=== PATIENT | male | born 1950 | race Hispanic/Latino ===

== ENCOUNTER 2018-10-31 12:01 | Observation (INO) | payer OTHER, MEDICARE ==
[~2018-10-31] VITALS: Ht 165.1 cm; Wt 78.0 kg
--- OUTSIDE RECORDS SUMMARY | 2018-10-31 12:03 | XMS REPORT ---
Author Author [facility] Address Unknown Phone Unavailable Care Team Providers Care Volunteer Patient Representative Name Role Phone Unavailable Unavailable Payers Payer Name Policy Type Policy Number Effective Date Expiration Date Problems This patient has no known problems. Allergies, Adverse Reactions, Alerts Allergy Name Allergy Type Status Severity Reaction(s) Onset Date Inactive Date Treating Clinician Comments No Known Allergies DA Active U 2018-02-26 00:00:00 Medications This patient has no known medications.
[2018-10-31] MEDS ORDERED: ASPIRIN 81 MG CHEW TAB ONE (12:31)
[2018-10-31] MEDS ORDERED: MORPHINE SULFATE INJ 4 MG/ML INJ 1ML ONE (12:31)
--- NOTE | 2018-10-31 12:46 | Diagnostic Imaging Report ---
EXAM: PA and lateral views of the chest. COMPARISON: None CLINICAL HISTORY: ^[id number] ^1231 FINDINGS: Lines/tubes: None. Lungs: The lungs are well inflated and clear. Pleura: There is no pleural effusion or pneumothorax. Heart and mediastinum: The cardiomediastinal silhouette is normal. Bones and soft tissues: No acute bony abnormalities. IMPRESSION: No acute cardiopulmonary abnormalities. Signed by: Dr. Allison Woo M.D. on 10/31/2018 12:43 PM
[2018-10-31] MEDS ORDERED: SODIUM CHLORIDE FLUSH 10 ML SYR INJ PRN (13:00)
[2018-10-31] MEDS ORDERED: ASPIRIN 81 MG CHEW TAB PO ONE ×2 (13:00)
[2018-10-31] MEDS ORDERED: MORPHINE SULFATE 5 MG/ML VIAL IV ONE (13:00)
[2018-10-31] MEDS ORDERED: NITROGLYCERIN 0.4 MG SUBL SL PRN (13:00)
[2018-10-31] MEDS ORDERED: MORPHINE SULFATE INJ 4 MG/ML INJ 1ML IV PRN (13:00)
[2018-10-31] MEDS ORDERED: ONDANSETRON HCL INJ 2MG/ML 2ML 2 MG/ML VIAL IV PRN (13:00)
[2018-10-31] MEDS ORDERED: SODIUM CHLORIDE 0.9% 1000ML 1,000 ML IV SCH (13:15)
[2018-10-31] MEDS ORDERED: SODIUM CHLORIDE 0.9% 1000ML 1,000 ML ONE (13:22)
--- NOTE | 2018-10-31 13:35 | NUR ---
Called [facility] to transport pt to [phone]
[2018-10-31] MEDS ORDERED: ASPIRIN EC81 MG PO (13:41)
[2018-10-31] MEDS ORDERED: METFORMIN HCL1000 MG (13:41)
[2018-10-31] MEDS ORDERED: LISINOPRIL10 MG PO (13:41)
[2018-10-31] MEDS ORDERED: GLIPIZIDE5 MG PO (13:41)
--- NOTE | 2018-10-31 13:53 | NUR ---
Report given to ELIAN Olivo
[2018-10-31] MEDS ORDERED: ACETAMINOPHEN 325 MG TAB PO PRN (15:30)
[2018-10-31] MEDS ORDERED: METOCLOPRAMIDE HCL 10 MG TAB PO ONE (15:30)
[2018-10-31 15:41] VITALS: BP 146/85
[2018-10-31 15:50] VITALS: BP 146/85
[2018-10-31] MEDS: SODIUM CHLORIDE 0.9% 1000ML 1,000 ML IV SCH (15:50)
[2018-10-31] MEDS ORDERED: CLOPIDOGREL BISULFATE 75 MG TAB PO ONE (16:00)
[2018-10-31] MEDS ORDERED: CHLORPROMAZINE HCL 25 MG TAB JT PRN (19:15)
--- NOTE | 2018-10-31 19:17 | Consultation ---
DATE OF CONSULTATION: 10/31/2018 Cardiac Consultation REASON FOR THE CONSULTATION: Hiccups and chest pain. HISTORY: A 68-year-old gentleman, diabetic, hypertensive, hypercholesterolemic. Relatively very active. He was working in the sun on Thursday and since then he was sick. He started having hiccups. The hiccups becoming continuous. It was so cumbersome and he is having chest pain with the hiccups. He is feeling unwell. The patient came to the emergency room. He also complained of chest pain and diaphoresis. Admitted for further management. Cardiac consultation obtained. Cardiac clark prior to this illness, the patient is relatively active with no angina. He does have easy fatigability and shortness of breath on exertion, which was noted since February "since the fall," he saw his physician may be it was small CVA and at that time he is not the way perfect he is, but he stays relatively active with some shortness of breath. Occasional chest tightness. No charli angina. No syncope or presyncope. REVIEW OF SYSTEMS: CARDIAC: As per above. PULMONARY: No cough. No hemoptysis. GI: No hematemesis. No melena. Hiccups acutely for the last 3 days. GENERAL: Fever and chills after working outside and dehydration couple few days back. HEENT: Unremarkable. : Decreased urine output. MUSCULOSKELETAL: Aches and pain. ENDOCRINE: Diabetes, on medication. SOCIAL HISTORY: He is . He is nonsmoker and he is non-alcohol drinker. 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 PAST MEDICAL HISTORY: Diabetes mellitus, hypertension, hyperlipidemia, February last year he had a fall, possible tiny CVA "as per family." HOME MEDICATIONS: Aspirin 81 mg a day, lisinopril 20 mg a day, glipizide 5 mg a day, metformin 1000 mg twice a day. FAMILY HISTORY: Father doing well at age 92. Mother of complication of diabetes mellitus at age 69. Six siblings, 4 brothers and 2 sisters. He lost a brother with diabetes mellitus complication. One son and 2 daughters are healthy. PHYSICAL EXAMINATION: VITAL SIGNS: Height of 5 feet 5 inches, weight of 172 pounds, blood pressure 150/80, heart rate of 80, respiratory rate of 18, and temperature of 96 Fahrenheit. HEENT: Pupils are equal and reactive. NECK: No elevation of jugular venous pulsation. No bruit. CHEST: Clear to auscultation and percussion. HEART: PMI 5th intercostal space. Normal first and second heart sound. ABDOMEN: Soft with good bowel sounds. EXTREMITIES: No cyanosis. No clubbing. No edema. NEUROLOGIC: Nonfocal. LABORATORY DATA: Sodium 139, potassium 4.1, BUN 49, and creatinine of 0.98. White blood cell count of 10, hemoglobin of 13.9, hematocrit 41%, and platelet count of 225,000. EKG, nonspecific ST changes. The CK and troponin are normal. BNP of only 5. IMPRESSION AND PLAN: 1. Hiccup. 2. Dehydration. 3. Chest pain. 4. Diabetes mellitus. 5. Hypertension. 6. Hyperlipidemia. Cardiac lcark, the patient will have serial cardiac enzymes already ordered. We will check his hemoglobin A1c. We will check his lipid profile. We will give the patient IV fluid hydration. We will give him 300 mg of Plavix. We will schedule the patient for stress test providing his cardiac enzymes are normal. Further steps to be done as needed. MD ATA Mcmillan/MODL /[id number]
--- NOTE | 2018-10-31 19:27 | NUR ---
Patient received lying in bed. AAO x 4. Family members at bedside. Patient had no complaints of chest pain or discomfort. No signs of respiratory distress. Telemetry in place recording SR at 86. Fall precautions implemented. Patient instructed to call for assistance when needed. Call light within reach.
[2018-10-31 20:21] VITALS: BP 145/60
[2018-10-31 21:00] VITALS: BP 145/60
--- NOTE | 2018-10-31 21:10 | NUR ---
Patient complained of hiccups. Medication administered per eMAR. Patient denies chest pain at this time.
[2018-11-01] VITALS (7 sets, daily range): BP systolic 120–157; BP diastolic 77–91
--- NOTE | 2018-11-01 00:05 | NUR ---
Patient complained of inability to fall asleep because of intermittent hiccups . Dr. Scott Mcclure paged. New order received for Restoril 15 mg x 1.
[2018-11-01] MEDS ORDERED: TEMAZEPAM 15 MG CAP PO ONE (00:15)
[2018-11-01 00:56] LABS: CREATINE KINASE 100 IU/L (30-200)
[2018-11-01] MEDS: SODIUM CHLORIDE 0.9% 1000ML 1,000 ML IV SCH ×3 (01:30→21:30)
[2018-11-01 05:21] LABS: BASOPHILS % 0.4 % (0.0-1.0); EOSINOPHILS # (AUTO) 0.1 (0.0-0.4); HEMATOCRIT 37.6 % (38.2-49.6); HEMOGLOBIN 12.8 g/dL (14.0-18.0); LYMPHOCYTES # (AUTO) 2.7 (1.0-3.2); LYMPHOCYTES % 24.1 % (18.0-39.1); MEAN CORPUSCULAR HEMOGLOBIN 28.8 pg (28-32); MEAN CORPUSCULAR VOLUME 84.7 fL (81-99); MONOCYTES # (AUTO) 1.1 (0.2-0.8); NEUTROPHILS # (AUTO) 7.2 (2.1-6.9); NEUTROPHILS % 64.1 % (38.7-80.0); PLATELET COUNT 248 x10e3/uL (140-360); RED BLOOD COUNT 4.44 x10e6/uL (4.3-5.7); RED CELL DISTRIBUTION WIDTH 13.1 % (11.7-14.4)
[2018-11-01 05:46] LABS: ALANINE AMINOTRANSFERASE 13 IU/L (0-55); ALBUMIN 3.5 g/dL (3.5-5.0); ALBUMIN/GLOBULIN RATIO 1.1 (0.8-2.0); ALKALINE PHOSPHATASE 72 IU/L (40-150); ANION GAP 12.8 mmol/L (8-16); BLOOD UREA NITROGEN 19 mg/dL (7-26); BUN/CREATININE RATIO 27 (6-25); CALCIUM 8.9 mg/dL (8.4-10.2); CARBON DIOXIDE 25 mmol/L (22-29); CHLORIDE 103 mmol/L (98-107); CHOL/HDL RATIO 3.3 (3.9-4.7); CHOLESTEROL 120 MD/DL (0-199); CREATININE, SERUM 0.71 mg/dL (0.72-1.25); EST GLOMERULAR FILTRATION RATE > 60 ML/MIN (60-); GLUCOSE 126 mg/dL (74-118); HDL CHOLESTEROL 36 MG/DL (40-60); LDL CHOLESTEROL 67 MG/DL (60-130); POTASSIUM 3.8 mmol/L (3.5-5.1); SODIUM 137 mmol/L (136-145); TRIGLYCERIDES 87 MG/DL (0-149)
[2018-11-01 06:18] LABS: CREATINE KINASE 94 IU/L (30-200)
[2018-11-01 06:26] LABS: THYROID STIMULATING HORMONE 1.258 uIU/mL (0.350-4.940)
--- NOTE | 2018-11-01 07:15 | NUR ---
Shift report given to oncoming nurse.
[2018-11-01] MEDS ORDERED: REGADENOSON 0.4 MG/5 ML SYR IV ONE (09:21)
[2018-11-01] MEDS: CHLORPROMAZINE HCL INJ 25 MG/ML AMP IM PRN ×2 (10:30→17:31)
--- NOTE | 2018-11-01 16:25 | NUR ---
Nutrition Screen Note RD Recommendation for Physician: The patient meets criteria for unspecified SEVERE protein-calorie malnutrition. -Continue diet as ordered Plan of Care: RD following, monitoring for tolerance and adequacy Nutrition reason for involvement: Nutrition risk trigger MST Primary Diagnose(s): chest pain PMH: Diabetes mellitus, hypertension, hyperlipidemia, February last year he had a fall, possible tiny CVA "as per family." Ht: 65in Wt: 172lb BMI: 28.6kg/m2 IBW: 136lb +/- 10% RD Assessment: (11/01) Chart reviewed. Labs and meds reviewed. 68yo M, who was admitted for chest pain and hiccups. Pending stress test today. Visited pt in the room. Slovenian speaking only. Daughter on bedside to translate. Per daughter, pt has had decreased PO intake due hiccups x 5 days. Pt stated he has this sour and bitter taste when he hiccups. Pt contributed his symptoms to heartburn. No history of GERD reported. Pt was given Thorazine and Reglan to help with his symptoms. Normal BM. No chewing or swallowing difficulty noted. Pt was not interested in any oral nutrition supplements until the hiccups resolved. Will continue to monitor and follow. Current Diet: cardiac/ ADA diet Malnutrition Evaluation (11/01) The patient meets criteria for unspecified SEVERE protein-calorie malnutrition. Energy intake: <50% of estimated energy requirements for >5 days Weight loss: >2% in 1week (Acute) - Last weight check was at doc's office about a week ago, at 178lbs. Fat loss: None Muscle loss: None Supporting Evidence: Fluid accumulation: None Functional Status: no changes Diet Education Needs Assessment: Diet education not indicated. Nutrition Care Level: mod Signed: Latia Horner, MS, RD, LD
--- NOTE | 2018-11-01 19:12 | NUR ---
bedside rounds done with oncoming nurse, pt lying in bed, at bedside, call light within reach.
--- NOTE | 2018-11-01 19:20 | NUR ---
Patient received lying in bed. AAO x 4. Family at bedside. Denies hiccups and chest pain at this time. Fall precautions implemented. Call light within reach.
--- NOTE | 2018-11-01 20:47 | Myoview Stress Test ---
DATE OF STUDY: 10/31/2018 15:19:00 TEST: Lexiscan nuclear cardiac stress test. TECHNICAL DETAILS: This was a resting stress protocol for the resting images. A total of 11 mCi of Myoview given intravenously. Half an hour after that proper SPECT imaging and scanning were done. For the stress images, the patient given 0.4 mg of Lexiscan followed by 31 mCi of Myoview. Half an hour after that proper imaging and SPECT imaging and processing were done. The patient tolerated the procedure. There were no complications. RESULTS: A. Hemodynamic. 1. Heart rate remained stable from 98 to 112 per minute. 2. Blood pressure dropped from 140/76 to 115/60. 3. No EKG changes. IMPRESSION: The patient tolerated Lexiscan injection with no EKG changes and no complication. B. Nuclear Imaging. 1. Myocardial Perfusion: A. Resting images. Resting images showed smooth distribution of isotope through all the segments with no abnormal uptake. B. Stress images. Again showed smooth distribution of isotope through all the segments with no abnormal uptake. In conclusion: Normal perfusion imaging. 2. Segmental wall motion. All segments were qian with no segmental wall motion abnormality. 3. Heart volume. End-diastolic volume of 61 mL. End-systolic volume of 14 mL with left ventricular ejection fraction of 77%. IMPRESSION: Normal myocardial perfusion with normal ventricular function and ejection fraction of 77%. In summary, low risk nuclear cardiac stress test. MD ATA Mcmillan/MODL /[id number] JOSE
[2018-11-02] VITALS (7 sets, daily range): BP systolic 104–162; BP diastolic 73–84
--- NOTE | 2018-11-02 05:50 | NUR ---
Patient's reported that her fell in the bathroom. Patient stated that he did not want to wake up or disturb his and went to the bathroom alone unaccompanied and without assistance. 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 Patient went to the bathroom without his ski socks and had previously refused activation of his bed alarm. Patient slipped and fell as he was washing his hands in the sink; and afterwards climbed into bed himself. Patient assessed and neuro checks done. Patient is AAO x 4 with no apparent deficits. No bruises to head or body. Dr. Scott Mcclure paged. Awaiting call back.
--- NOTE | 2018-11-02 07:00 | NUR ---
Walking rounds done. Shift report given to oncoming nurse about patient's status.
--- NOTE | 2018-11-02 07:00 | NUR ---
BEDSIDE SHIFT REPORT RECEIVED FROM THE HELPER [employer] RN. EDUCATED PT ABOUT FALL PRECAUTION. BED IS AT THE LOWEST POSITION AND LOCKED. CALL LIGHT WITH IN EASY REACH. INSTRUCTED PT TO CALL FOR ALL THE NEEDS. PT VERBALIZED UNDERSTANDING. PT FAMILY AT BEDSIDE.
--- NOTE | 2018-11-02 07:01 | NUR ---
FALL PREVENTION SAFETY SOCKS ARE ON WITH THE PT.
[2018-11-02] MEDS ORDERED: GLIPIZIDE 5 MG TAB PO SCH (07:30)
[2018-11-02] MEDS: SODIUM CHLORIDE 0.9% 1000ML 1,000 ML IV SCH (07:30)
[2018-11-02] MEDS ORDERED: METFORMIN HCL 500 MG TAB CR PO SCH (08:00)
--- NOTE | 2018-11-02 08:00 | NUR ---
WALKING ROUNDS MADE. PT DENIES NEEDS AT THIS TIME.
[2018-11-02] MEDS ORDERED: LISINOPRIL 20 MG TAB PO SCH (09:00)
[2018-11-02] MEDS ORDERED: ASPIRIN 81 MG ENTERIC COATED PO SCH (09:00)
[2018-11-02] MEDS ORDERED: LISINOPRIL 10 MG TAB PO SCH (09:00)
[2018-11-02] MEDS: CHLORPROMAZINE HCL INJ 25 MG/ML AMP IM PRN (09:21)
[2018-11-02] MEDS ORDERED: ONDANSETRON HCL 4 MG ORAL DISINTEGRATING TAB PO PRN (11:00)
[2018-11-02] MEDS ORDERED: METOCLOPRAMIDE HCL 10 MG TAB PO ONE (12:00)
[2018-11-02] MEDS ORDERED: PANTOPRAZOLE SOD 40 MG TABEC PO SCH ×2 (12:03→16:30)
--- NOTE | 2018-11-02 14:38 | Discharge Summary ---
PRIMARY CARE DOCTOR: Dr. Adarsh Finnegan. FINAL DIAGNOSIS: Noncardiac chest pain due to severe persistent hiccups. SECONDARY DIAGNOSES: 1. Diabetes. 2. Hypertension. CONSULTANTS: Dr. Loredo, Cardiology. PROCEDURE/STUDIES PERFORMED: Stress test. HISTORY: Per H and P. HOSPITAL COURSE: The patient was admitted. His troponins were negative. Therefore, no acute myocardial infarction. Stress test was done which was normal. The patient was given IM Thorazine injections. Now, his hiccup is better, not sure whether it is because of Thorazine or it is getting better on its own. The patient was told to start PPIs due to acid symptoms. The patient also has a GI followup next week. The patient will also follow up with his primary care doctor in a week. I have updated his primary care doctor about this hospitalization. The patient was seen and examined today. CONDITION ON DISCHARGE: Improved. DISCHARGE MEDICATIONS: Please see medication reconciliation form. [facility] MD KRUNAL Jovel/MAXIMUS /[id number] cc: [facility]
--- NOTE | 2018-11-02 14:53 | NUR ---
OKAY TO DISCHARGE PER DR. JOSEPH AND GILLES RIVAS.
[2018-11-02] MEDS ORDERED: REGLAN10 MG PO (15:00)
--- NOTE | 2018-11-02 15:03 | NUR ---
PAGED DR JOSEPH REGARDING PT DISCHARGE MEDS. CONTINUE MEDICINES PER THE
--- NOTE | 2018-11-02 15:30 | NUR ---
PT DISCHARGED HOME SAFELY WITH FAMILY. IV REMOVED. TIP INTACT. NO BLEEDING NOTED. DRESSING APPLIED. PT DENIED FURTHER NEEDS.
--- NOTE | 2018-11-02 15:55 | NUR ---
DISCUSSED IN BARRIER ROUNDS. PENDING RESULTS FROM STRESS TEST TO GET DISCHARGE PLAN. NO PLAN DOCUMENTED AT THIS TIME.
== END 2018-11-02 16:09 | disposition home or self-care (01) ==
LOC: FSED 12:01 → ERHOLD 13:03 → MED/SURG2 14:42
PROVIDERS: ADMIT Internal Medicine; ATTEND Internal Medicine
DX: R07.89 Other chest pain (principal); R06.6 Hiccough; E11.9 Type 2 diabetes mellitus without complications; E78.5 Hyperlipidemia, unspecified; E86.0 Dehydration; I10 Essential (primary) hypertension; K21.9 Gastro-esophageal reflux disease without esophagitis; K29.00 Acute gastritis without bleeding; Z79.82 Long term (current) use of aspirin; Z79.84 Long term (current) use of oral hypoglycemic drugs
CPT/HCPCS: 36415 ×3; 71046; 78452; 80053 ×2; 80061; 82550 ×2; 82553 ×2; 82948 ×3; 83036; 83690; 83880; 84443; 84484 ×2; 85025 ×2; 93005 ×2; 93017; 93306; 96374; 97161; 99284; A9502; G0378 ×3; J2270; J2785; J3230; J7030 ×2; J8597 ×2; Q0161 ×2; S0164; J2405